=== PATIENT | female | born 1985 ===

== ENCOUNTER 2022-02-11 05:36 | Outpatient (CLI) | payer OTHER ==
[~2022-02-11] VITALS: Ht 162.6 cm; Wt 73.2 kg
== END 2022-02-12 16:06 | disposition home or self-care (01) ==
LOC: PREOP 05:36
PROVIDERS: ATTEND Obstetrics & Gynecology
DX: Z01.818 Encounter for other preprocedural examination (principal); N83.209 Unspecified ovarian cyst, unspecified side; Z80.41 Family history of malignant neoplasm of ovary

== ENCOUNTER 2022-02-18 05:39 | Day surgery (SDC) | payer OTHER ==
[2022-02-18] VITALS (9 sets, daily range): BP systolic 92–155; BP diastolic 57–84
[~2022-02-18] VITALS: Ht 162.6 cm; Wt 73.2 kg
[2022-02-18 06:20] LABS: BILIRUBIN,URINE NEGATIVE (NEGATIVE); CLARITY,URINE CLEAR; COLOR,URINE YELLOW; GLUCOSE, URINE (UA) NEGATIVE (NEGATIVE); KETONES,URINE NEGATIVE (NEGATIVE); LEUKOCYTE ESTERASE ,URINE 1+ (NEGATIVE); NITRITE,URINE POSITIVE (NEGATIVE); PROTEIN,URINE TRACE (NEGATIVE)
[2022-02-18 06:33] LABS: BACTERIA,URINE NEGATIVE /HPF; RBC,URINE 0-2 /HPF; WBC,URINE 25-50 /HPF
[2022-02-18] MEDS: LACTATED RINGERS 1,000 ML IV PRN ×4 (06:35→12:10)
[2022-02-18] MEDS ORDERED: ceFAZolin INJECTION 2,000 MG in NS (IVPB) 50 ML IV ONE (07:00)
[2022-02-18] MEDS ORDERED: CLINDAMYCIN 600 MG/50 ML IVPB 50 ML IV ONE (07:00)
[2022-02-18] MEDS ORDERED: ceFAZolin 2 GM IV Premixed 50 ML IV ONE (07:00)
[2022-02-18 07:03] LABS: BASOPHILS # (AUTO) 0.1 10^3/uL (0.0-0.1); BASOPHILS % (AUTO) 1 % (0-10); EOSINOPHILS # (AUTO) 0.2 10^3/uL (0.0-0.3); EOSINOPHILS % (AUTO) 2 % (0-10); HEMATOCRIT 50 % (35-52); HEMOGLOBIN 16.9 g/dL (11.5-16.0); LYMPHOCYTES % (AUTO) 24 % (12-44); MEAN CORPUSCULAR HEMOGLOBIN 30 pg (25-34); MEAN CORPUSCULAR HGB CONC 34 g/dL (32-36); MEAN CORPUSCULAR VOLUME 88 fL (80-99); MEAN PLATELET VOLUME 10.4 fL (9.0-12.2); MONOCYTES # (AUTO) 0.7 10^3/uL (0.0-1.0); MONOCYTES % (AUTO) 6 % (0-12); NEUTROPHILS # (AUTO) 8.3 10^3/uL (1.8-7.8); NEUTROPHILS % (AUTO) 68 % (42-75); PLATELET COUNT 247 10^3/uL (130-400); WHITE BLOOD COUNT 12.4 10^3/uL (4.3-11.0)
[2022-02-18] MEDS ORDERED: ONDANSETRON 4 MG/2 ML (SDV) Z0FRAN ONE ×2 (07:18→10:12)
[2022-02-18] MEDS ORDERED: proPOfol 200 MG/20 ML (DIPRIVAN) VIAL IV ONE (07:18)
[2022-02-18] MEDS ORDERED: MIDAZOLAM 2 MG/2 ML (VERSED) VIAL ONE (07:18)
[2022-02-18] MEDS ORDERED: GLYCOPYRROLATE 0.2 MG/ML (ROBINUL) 2 ML VIAL ONE ×2 (07:18→09:43)
[2022-02-18] MEDS ORDERED: LIDOCAINE PF 2% 5 ML (XYLOCAINE) VIAL ONE (07:18)
[2022-02-18] MEDS ORDERED: NEOSTIGMINE (BLOXIVERZ ) 1 MG/1ML 10 ML VIAL ONE (07:18)
[2022-02-18] MEDS ORDERED: fentaNYL INJ 100 MCG/2 ML AMP ONE (07:18)
[2022-02-18] MEDS ORDERED: ROCURONIUM 50 MG/5 ML (ZEMURON) VIAL IV ONE ×2 (07:18→09:08)
[2022-02-18] MEDS ORDERED: NITR-65 PO (07:24)
[2022-02-18] MEDS ORDERED: OXYC5TAB PO (07:29)
[2022-02-18] MEDS ORDERED: EST1.25T PO (07:29)
[2022-02-18] MEDS ORDERED: IBUP-1773 PO (07:29)
[2022-02-18 07:34] LABS: ALBUMIN 3.4 GM/DL (3.2-4.5); POTASSIUM 3.9 MMOL/L (3.6-5.0)
[2022-02-18 07:35] LABS: CALCIUM 8.7 MG/DL (8.5-10.1)
[2022-02-18 07:36] LABS: TOTAL PROTEIN 5.9 GM/DL (6.4-8.2)
[2022-02-18 07:38] LABS: BILIRUBIN,TOTAL 0.3 MG/DL (0.1-1.0)
[2022-02-18 07:40] LABS: CREATININE SERUM 0.78 MG/DL (0.60-1.30)
--- NOTE | 2022-02-18 07:42 | History & Physical-OB/GYN ---
History of Present Illness History of Present Illness Reason for visit/HPI Pre-op Date of Admission 02/18/2022 Date Seen by a Provider: Feb 18, 2022 Time Seen by a Provider: 06:45 I consulted on this patient on 02/18/22 07:35 Attending Physician Admitting Physician Admitting Physician: Attending Physician: Cierra Mustafa MD Consult Allergies and Home Medications Allergies Coded Allergies: Penicillins (Verified Allergy, Severe, Anaphylaxis, 02/18/22) THROAT SWELLING sulfamethoxazole (Verified Allergy, Severe, Anaphylaxis, 02/18/22) THROAT SWELLING trimethoprim (Verified Allergy, Severe, Anaphylaxis, 02/18/22) THROAT SWELLING Patient Home Medication List Home Medication List Reviewed: Yes Estrogens Conjugated (Premarin) 1.25 Mg Tab, 1.25 MG PO DAILY Prescribed by: Cierra Mustafa on 02/18/22 07 Ibuprofen (Ibuprofen) 600 Mg Tablet, 600 MG PO Q6H PRN for PAIN-MILD Prescribed by: Cierra Mustafa on 02/18/22 07 Nitrofurantoin Monohyd/M-Cryst (Macrobid 100 mg Capsule) 100 Mg Capsule, 1 TAB PO BID Prescribed by: Cierra Mustafa on 02/18/22 0724 Oxycodone HCl (Oxycodone HCl) 5 Mg Tablet, 5 MG PO Q6H Prescribed by: Cierra Mustafa on 02/18/22 0730 Past Ppilabp-Cogomh-Ivbxva Hx Patient Social History Number of Children: 1 Drug of Choice: MARIJUANA Smoking Status: Current Everyday Smoker Cigaretts per day: 10 2nd Hand Smoke Exposure: Yes Recent Hopitalizations: No (SEPTEMBER 2021 FOR KIDNEY STONE) Seasonal Allergies Seasonal Allergies: Yes Surgeries Yes (WISDOM TEETH; KIDNEY STONE) Section, Tonsillectomy, Tubal Ligation Respiratory No Cardiovascular No Neurological No Reproductive System : No Female Reproductive Disorders: 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 Genitourinary Yes Kidney Stones Gastrointestinal No Musculoskeletal No Endocrine History of Endocrine Disorders: No HEENT History of HEENT Disorders: No Cancer No Psychosocial History of Psychiatric Problem: No Integumentary History of Skin or Integumenta: Yes (NOT SURE WHAT IT IS CALLED- PER PATIENT) Blood Transfusions History of Blood Disorders: No Review of Systems Constitutional: no symptoms reported Respiratory: no symptoms reported Cardiovascular: no symptoms reported Gastrointestinal: no symptoms reported Genitourinary: no symptoms reported Musculoskeletal: no symptoms reported Skin: no symptoms reported Psychiatric/Neurological: No Symptoms Reported Physical Exam Physical Exam Vital Signs Vital Signs Date Time Temp Pulse Resp B/P (MAP) Pulse Ox O2 Delivery O2 Flow Rate FiO2 02/18/22 06:35 37.0 58 22 121/80 (94) 98 Room Air Capillary Refill : Labs Laboratory Tests 02/18/22 00:00: Sodium Level 140, Potassium Level 3.9, Chloride Level 110H, Albumin 3.4 02/18/22 06:05: Urine Color YELLOW, Urine Clarity CLEAR, Urine pH 6.0, Urine Specific [place] 1.025H, Urine Protein TRACEH, Urine Glucose (UA) NEGATIVE, Urine Ketones NEGATIVE, Urine Nitrite POSITIVEH, Urine Bilirubin NEGATIVE, Urine Urobilinogen 0.2, Urine Leukocyte Esterase 1+H, Urine RBC (Auto) TRACE-IH, Urine RBC 0-2, Urine WBC 25-50H, Urine Squamous Epithelial Cells 2-5, Urine Crystals NONE, Urine Bacteria NEGATIVE, Urine Casts NONE, Urine Mucus NEGATIVE, Urine Culture Indicated YES 02/18/22 06:35: White Blood Count 12.4H, Red Blood Count 5.64H, Hemoglobin 16.9H, Hematocrit 50, Mean Corpuscular Volume 88, Mean Corpuscular Hemoglobin 30, Mean Corpuscular Hemoglobin Concent 34, Red Cell Distribution Width 13.3, Platelet Count 247, Mean Platelet Volume 10.4, Immature Granulocyte % (Auto) 0, Neutrophils (%) (Auto) 68, Lymphocytes (%) (Auto) 24, Monocytes (%) (Auto) 6, Eosinophils (%) (Auto) 2, Basophils (%) (Auto) 1, Neutrophils # (Auto) 8.3H, Lymphocytes # (Aut o) 3.0, Monocytes # (Auto) 0.7, Eosinophils # (Auto) 0.2, Basophils # (Auto) 0.1, Immature Granulocyte # (Auto) 0.0 Assessment/Plan Assessment and Plan 36y/o requesting hysterectomy BSO Family history of ovarian cancer Previous tubal ligation Urinalysis with signs of UTI, denies symptoms - Rx macrobid sent allergy to PCN, however denies reaction to Keflex - plan Ancef pre-op Risks of surgery reviewed and questions answered to her satisfaction Plan estradiol PO replacement - risks of dvt/pe reviewed. Advised to initiate after fully ambulatory and 4 weeks post-op Counseled risks of tobacco/marijuana use on delay of healing of vaginal cuff Rec vitamins, tobacco and marijuana cessation Admission Diagnosis Admission Status: Observation CIERRA MUSTAFA MD Feb 18, 2022 07:42
[2022-02-18] MEDS ORDERED: morphine INJ 4 MG/ML 1 ML (VIAL/SYRINGE) IV PRN (07:45)
[2022-02-18] MEDS ORDERED: ACETAMINOPHEN 500 MG TAB (TYLENOL) PO SCH (07:45)
[2022-02-18] MEDS ORDERED: BENZOCAINE/MENTHOL (DERMOPLAST) 56 ML CAN TP PRN (07:45)
[2022-02-18] MEDS ORDERED: ONDANSETRON 4 MG/2 ML (SDV) Z0FRAN IVP PRN (07:45)
[2022-02-18] MEDS ORDERED: METOCLOPRAMIDE INJ 10 MG/2 ML (REGLAN) IV PRN (07:45)
[2022-02-18] MEDS ORDERED: NALOXONE 0.4 MG/ML 1 ML (NARCAN) VIAL IV PRN (07:45)
[2022-02-18] MEDS ORDERED: HYDROmorphone 2 MG/ML VIAL (DILAUDID) IV ONE (07:45)
[2022-02-18] MEDS ORDERED: morphine INJ 10 MG/ML 1ML (SYR OR VIAL) IVP ONE (07:45)
[2022-02-18] MEDS ORDERED: D5 LR IV SOLUTION 1,000 ML IV SCH (07:45)
[2022-02-18] MEDS ORDERED: KETOROLAC 30 MG/ML VIAL IV SCH (07:45)
[2022-02-18] MEDS ORDERED: SEVOFLURANE (ULTANE) 15 ML INHAL SOLN ONE (10:08)
[2022-02-18] MEDS ORDERED: KETOROLAC 30 MG/ML VIAL ONE (10:12)
[2022-02-18] MEDS ORDERED: morphine INJ 10 MG/ML 1ML (SYR OR VIAL) ONE (10:18)
--- NOTE | 2022-02-18 13:40 | OPERATIVE REPORT ---
DATE OF SERVICE: 02/18/2022 PREOPERATIVE DIAGNOSES: Family history of ovarian cancer and history of sterilization. POSTOPERATIVE DIAGNOSES: Family history of ovarian cancer and history of sterilization. PROCEDURE: Robotic-assisted laparoscopic hysterectomy with bilateral salpingo-oophorectomy. SURGEON: Felicita Jhaveri MD ANESTHESIA: General. ESTIMATED BLOOD LOSS: Less than 100 mL. COMPLICATIONS: None. CONDITION: Stable. FINDINGS: Normal-appearing uterus and ovaries, tubes, status post ligation and adhesions between omentum and anterior abdominal wall as well as colon, adnexal structures and peritoneal adhesions, status post . PROCEDURE IN DETAIL: After the risks, benefits and alternatives of the procedure were described to the patient, she was taken to the operating room where general anesthesia was obtained without difficulty. She was placed in dorsal lithotomy position and prepped and draped in the usual sterile fashion with Ram catheter and SCDs in place. A weighted speculum was placed in the patient's vagina. The anterior lip of the cervix was grasped with a single tooth tenaculum. A [id number] 0 Vicryl stitch was placed at 3 and 9 o'clock. The ANTONIO uterine manipulator was assembled with an 8 cm tip and the 2.5 cm cervical cuff and assembled in the usual sterile fashion. All other instruments were removed from the patient's vagina. Attention was turned to the abdominal portion of the procedure where an 8 mm skin incision was made in the supraumbilical midline. The fascia was grasped and elevated and the Veress needle was advanced without difficulty and pneumoperitoneum was achieved. The Veress needle was removed, and an 8 mm trocar and sleeve were advanced without difficulty. The abdomen was surveyed with the above findings. She was placed in Trendelenburg and an 8 mm skin incision was made in the right and left lower quadrant and corresponding trocar and sleeve were advanced without difficulty under direct visualization. The pelvis was surveyed with the above findings and the ureter was visualized outside anticipated surgical field; however, the left ureter was slightly difficult to visualize secondary to adhesions, but was appreciated to be well away from the infundibulopelvic ligament. After the bowel adhesions were dissected back from the adnexal structures, the infundibulopelvic ligaments were isolated, cauterized and cut, hemostasis was assured. The remainder of the adnexal structures were amputated in similar fashion and the round ligaments were isolated, cauterized and cut. Hemostasis was assured. The broad ligaments were dissected down towards the cervix and the uterine arteries were skeletonized easily on the left side, cauterized and cut. While attempting to do likewise on the right side, it was noted that the myometrium had a defect, and you could visualize the endocervical balloon on the manipulator. The vessels were isolated, cauterized and cut. Hemostasis was assured. The vesicouterine peritoneum was dissected off the lower uterine segment. Anterior colpotomy was made and the cervix was amputated circumferentially. The specimen was delivered intact through the vagina and sent for pathology. Pneumoperitoneum was achieved and maintained with placement of a lap sponge. The laparoscopic instruments were exchanged from the vessel sealer for a fenestrated bipolar and monopolar hook cautery for mark suture cut and the cuff was closed with a barbed V-Loc stitch running lateral to the midline crossing in the midline. Hemostasis was appreciated. All instruments were removed from the patient's abdomen. The patient tolerated the procedure well. Sponge, lap, needle, instrument counts were correct. Prior to this, the skin incisions were closed with subcuticular 4-0 Monocryl stitch. Ram catheter was removed, a lap sponge was removed and hemostasis was appreciated in the vagina. She was taken to recovery room awake in stable condition. She received 2 grams of Ancef prior to procedure. Preoperative urinalysis showed 20 to 50 white blood cells and nitrites and will be sent home with Macrobid and instructions for pushing fluids. Job ID: [id number] DocumentID: [id number] Dictated Date: 02/18/2022 11:05:43 Finish Grinder Date: 02/18/2022 13:39:24 Dictated By: Felicita Jhaveri MD [facility]
[2022-02-19] MEDS ORDERED: DOCUSATE SODIUM 100 MG (COLACE) CAP PO SCH (09:00)
--- NOTE | 2022-02-19 10:00 | Anesthesia-General Post-Op ---
General Patient Condition Mental Status/LOC: Same as Preop Cardiovascular: Satisfactory Nausea/Vomiting: Absent Respiratory: Satisfactory Pain: Controlled Complications: Absent Post Op Complications Complications None Follow Up Care/Instructions Patient Instructions None needed. Anesthesia/Patient Condition Patient Condition Patient is doing well, no complaints, stable vital signs, no apparent adverse anesthesia problems. No complications reported per nursing. NAVIN EDMONDS CRNA Feb 19, 2022 10:00
[2022-02-19] MEDS ORDERED: IBUPROFEN 600 MG (MOTRIN) TAB PO SCH (13:00)
== END 2022-02-18 15:25 | disposition home or self-care (01) ==
LOC: SDC 05:39 → WS 09:49 → SDC 15:25
PROVIDERS: ATTEND Obstetrics & Gynecology
DX: N83.02 Follicular cyst of left ovary (principal); N83.01 Follicular cyst of right ovary; N70.11 Chronic salpingitis; F17.210 Nicotine dependence, cigarettes, uncomplicated
CPT/HCPCS: 36415; 80053; 81000; 84703; 85025; 86850; 86900; 86901; 87081; 87088